=== PATIENT | male | born 2000 ===

== ENCOUNTER 2020-12-27 19:11 | Emergency (ER) | payer OTHER ==
[~2020-12-27] VITALS: Ht 175.3 cm; Wt 72.6 kg
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
[2020-12-27 21:42] VITALS: BP 120/95
[2020-12-27] MEDS ORDERED: HYDROcodone/APAP 5/325 TABLET ONE (21:52)
[2020-12-27] MEDS ORDERED: HYDROcodone/APAP 5/325 TABLET PO ONE (22:00)
== END 2020-12-27 22:09 | disposition home or self-care (01) ==
LOC: ED 21:42
DX: S60.212A Contusion of left wrist, initial encounter (principal); R07.89 Other chest pain; W18.30XA Fall on same level, unspecified, initial encounter; Y93.89 Activity, other specified; Y92.410 Unspecified street and highway as the place of occurrence of the external cause; Y99.8 Other external cause status
CPT/HCPCS: 29125; 71045; 99284